=== PATIENT | female | born 1960 | race Caucasian/White ===

== ENCOUNTER → 2020-04-23 07:43 | Outpatient (CLI) | payer OTHER, SELFPAY ==
--- NOTE | ~2020-04-23 | US_ITS ---
EXAMINATION: US right upper quadrant EXAM DATE: 04/23/2020 08:12 INDICATION: Postprandial right upper quadrant pain. TECHNIQUE: Multiple grayscale and Doppler images of the abdomen right upper quadrant were obtained (b y a technologist who performed the scan) and subsequently reviewed. There is no prior study for cat hay. FINDINGS: The pancreatic head and body are normal in appearance. The pancreatic tail is not visualized. There is echogenic liver parenchyma with poor penetration, hepatic steatosis. There are no focal liver le sions identified. There is no evidence of intrahepatic biliary duct dilation. Portal venous flow w as seen in the hepatopedal, normal direction and has normal Doppler waveform. No right-sided hydrone phrosis. Common bile duct measures 4 mm, which is normal. The gallbladder wall is normal in thickness, with ex pected amount of distention. No sonographic evidence of pericholecystic fluid. At least 4 regions i dentified that are nonmobile, nonechogenic along the gallbladder wall, probably polyps. Largest is 1. 1 cm. Technologist performing exam reports patient did not demonstrate sonographic Newberry's sign. P lease note that this sign is less reliable in patients who have received pain medication. IMPRESSION: 1. Gallbladder polyps up to 1.1 cm; consider cholecystectomy or six-month follow-up ultrasound. 2. Hepatic steatosis. Reviewed, dictated and finalized at location B. IMPRESSION: 1. Gallbladder polyps up to 1.1 cm; consider cholecystectomy or six-month foll ow-up ultrasound. 2. Hepatic steatosis.
== END ==
PROVIDERS: PCP Family Medicine; Visit Provider Family Medicine
DX: K82.4 Cholesterolosis of gallbladder (principal); K76.0 Fatty (change of) liver, not elsewhere classified
CPT/HCPCS: 76705

== ENCOUNTER 2020-05-23 10:15 | Outpatient (CLI) | payer OTHER, SELFPAY ==
--- NOTE | ~2020-05-23 | MM_ITS ---
EXAMINATION: MM screening [facility] BI w tamiko HISTORY: Screening mammogram TECHNIQUE: Craniocaudal and mediolateral oblique 3-D tomosynthesis images were obtained and synthetic 2-D images were generated. CAD analysis was submitted and interpreted. COMPARISON: No prior mammogram is available for comparison at this institution. BREAST PARENCHYMAL COMPOSITION: 02/10/2019, 07/02/2017, 07/23/2015 bilateral digital screening mammogra m examinations FINDINGS: Stable mild fibroglandular asymmetry. There is no evidence of suspicious mass, calcificatio n, or architectural distortion to suggest malignancy in either breast. There has been no suspicious i nterval change. IMPRESSION: 1. No mammographic evidence of malignancy. 2. Recommend routine screening mammography in one year. BI-RADS Category 2: Benign finding(s). Reviewed, dictated and finalized at location A.
== END 2020-05-23 10:16 | disposition home or self-care (01) ==
PROVIDERS: PCP Family Medicine; Visit Provider Family Medicine
DX: Z12.31 Encounter for screening mammogram for malignant neoplasm of breast (principal)
CPT/HCPCS: 77063; 77067

== ENCOUNTER 2020-09-30 14:09 | Emergency (ER) | payer OTHER, SELFPAY ==
[2020-09-30 14:12] VITALS: BP 149/106; PULSE 108; RESP 18; TEMP 36.3; O2SAT 100
--- NOTE | 2020-09-30 14:30 | ECG_ITS ---
Measurements Intervals [place] Rate: 98 P: 38 AR: 137 QRS: 5 QRSD: 93 T: 30 QT: 345 QTc: 442 Interpretive Statements SINUS RHYTHM MINIMAL Q WAVES- INFERIOR LEADS BORDERLINE ECG Electronically Signed On 09-30-2020 14:41:04 MARINE SERVICE STATION ATTENDANT by Kennedy Price D.O.
--- NOTE | 2020-09-30 14:54 | ED.ARRPALP ---
HPI - Arrhythmia/Palpitations General Chief Complaint: Arrhythmia/Palpitations Stated Complaint: heart racing Time Seen by Provider: 09/30/20 14:27 Source: patient Mode of arrival: ambulatory Limitations: no limitations History of Present Illness HPI narrative: A 60-year-old female presents to the emergency department with complaints of palpitations and her heart racing. Patient notes an example of last night while sleeping patient states she woke right up had to urinate and at this time noted that her heart was racing. She denies any chest pain or tightness at this time. She denies any shortness of breath. Patient does note that she has had a few of her blood pressure medications changed around. She was started on lisinopril but noted that she was starting to have a swelling feeling in the back of her throat and tongue. Because of this her primary care doctor stopped the lisinopril and switch her to hydrochlorothiazide. Related Data Home Medications Medication Instructions Recorded Confirmed omeprazole magnesium 20 mg 20 mg PO DAILY 05/24/20 09/26/20 tablet,delayed release Allergies Allergy/AdvReac Type Severity Reaction Status Date / Time fluticasone [From Flonase] Allergy Hyperactive Verified 09/30/20 14:16 Review of Systems Review of Systems: Narrative: CONSTITUTIONAL: Denies fever, chills, or sweats. EYES: Denies visual changes, redness, or discharge. ENT: Denies rhinorrhea, congestion, sore throat, or otalgia. CARDIOVASCULAR: Denies chest pain, palpitations, or edema. RESPIRATORY: Denies cough or dyspnea. GASTROINTESTINAL: Denies abdominal pain, nausea, vomiting, or diarrhea. GENITOURINARY: Denies dysuria or hematuria. SKIN: Denies rash or itching. MUSCULOSKELETAL: Denies back pain, joint pain, or myalgia. NEUROLOGIC: Denies headache, numbness, dizziness, or weakness. PSYCHIATRIC: Denies anxiety or depression. [facility] Past Medical History Medical History Aftercare following surgery (08/18/19) Tear of medial meniscus of right knee Surgical History Surgical History H/O partial thyroidectomy History of partial hysterectomy Status post arthroscopic knee surgery (12/13/19) Family History Family History Mother Family history of arthritis Diabetes mellitus Father Family history of malignant neoplasm Diabetes mellitus Family history of arthritis Sibling Family history of hypercholesterolemia Hypertension Social History Social History Smoking status: Never smoker Alcohol intake: never Gender identity (if verbalized by the patient): Female Exam Narrative: Exam Narrative: GENERAL: Well-appearing, well-nourished, and in no acute distress. HEAD: Normocephalic, atraumatic. EYES: PERRLA and EOMI. ENT: Nares clear, no rhinorrhea or epistaxis. Mucous membranes moist. Oropharynx without tonsillar hypertrophy exudate or other lesions. Bilateral TMs pearly reynoso nonbulging NECK: Supple. No adenopathy or masses. No carotid bruits or JVD CHEST: Clear to auscultation. No respiratory distress. No wheezes rales or rhonchi HEART: Regular rate and rhythm. No murmur heard. Normal peripheral pulses. ABDOMEN: Soft, nontender, nondistended, normal active bowel sounds. EXTREMITIES: Normal range of motion. No edema. SKIN: Warm, dry, no rash. NEURO: No focal deficits. Alert and oriented x3. PSYCH: Normal mood and affect. Course Reevaluation(s) Reevaluation #1: Patient is resting comfortably. She has no complaints. The patient notes that she has had no further of the palpitations while here in the emergency department. She was asking questions regarding her lisinopril. Patient states that the tingling and slight swelling feeling that she was feeling in the back of her throat has been improving. She
[2020-09-30] MEDS: LACTATED RINGERS 1,000 ML 999 ML IV CONT (15:12)
[2020-09-30 15:56] LABS: Basophils Percent Auto 0.2 % (0.2-1.2); Eosinophils Absolute Auto 0.1 K/mm3 (0-0.3); Eosinophils Percent Auto 1.2 % (0-4.4); Hematocrit 42.1 % (37.0-47.0); Hemoglobin 13.7 g/dL (12.0-15.0); Immature Granulocyte Absolute 0.04 K/mm3 (0.00-0.031); Immature Granulocyte Percent A 0.4 % (0-0.5); Lymphocytes Absolute Auto 2.53 K/mm3 (0.9-3.2); Lymphocytes Percent Auto 24.7 % (18.3-44.2); Mean Corpuscular HGB Conc 32.5 g/dl (32-36); Mean Corpuscular Hemoglobin 27.3 pg (26-34); Mean Platelet Volume 9.5 fl (7.4-10.4); Monocytes Absolute Auto 0.9 K/mm3 (0.1-0.6); Monocytes Percent Auto 9.1 % (2.6-8.5); Neutrophils Absolute Auto 6.6 K/mm3 (1.3-6.7); Neutrophils Percent Auto 64.4 % (45.5-73.1); Platelet Count Result 343 k/mm3 (150-375); Red Blood Count 5.01 M/mm3 (4.2-5.4); Red Cell Distribution Width 13.2 % (11.5-14.5); White Blood Count 10.3 K/mm3 (4.5-10.0)
[2020-09-30 15:58] LABS: Add Urine Microscopic? NO; Appearance Urine Clear (Clear); Bilirubin Urine Negative (Negative); Blood Urine Negative (Negative); Color Urine Straw (Yellow); Glucose Urine UA Negative (Negative); Ketones Urine Negative (Negative); Leukocyte Esterase Ur Negative LEU/UL (Negative); Nitrate Urine Negative (Negative); Protein Urine Negative (Negative); Urobilinogen Urine Negative mg/dL (<2.0)
[2020-09-30 16:12] LABS: Alanine Aminotransferase 46 U/L (4-35); Albumin Level 4.6 g/dL (3.5-5.1); Alkaline Phosphatase 87 U/L (38-126); Anion Gap 8 mmol/L (8-16); Aspartate Amino Transferase 37 U/L (14-36); Bilirubin,Total 0.5 mg/dL (0.2-1.3); Blood Urea Nitrogen 18 mg/dL (7-17); Calcium 9.7 mg/dL (8.4-10.2); Carbon Dioxide 28 mmol/L (22-30); Chloride 103 mmol/L (98-107); Creatine Kinase 28 U/L (30-135); Estimated CRCL calculation 61 ml/min; Estimated Glomerular Filt Rate > 60; Glucose 105 mg/dL (65-105); Potassium 4.1 mmol/L (3.4-5.0); Sodium 139 mmol/L (137-145)
[2020-09-30 16:13] LABS: Amphetamine Screen Urine Negative (Negative); Barbiturate Screen Urine Negative (Negative); Benzodiazepines Screen Urine Negative (Negative); Cannabinoid Screen Urine Negative (Negative); Cocaine Screen Urine Negative (Negative); Methadone Screen Urine Negative (Negative); Opiate Screen Urine Negative (Negative); Phencyclidine Screen Urine Negative (Negative)
[2020-09-30 16:23] LABS: Troponin I < 0.012 ng/mL (0.000-0.034)
[2020-09-30 17:04] VITALS: BP 139/75; PULSE 97; RESP 17; O2SAT 100
[2020-09-30 17:23] LABS: Thyroid Stimulating Hormone Reflex 0.222 uIU/mL (0.465-4.68)
[2020-09-30 18:07] LABS: Free T4 Free Thyroxine Reflex 0.97 ng/dL (0.78-2.19)
[2020-09-30 19:02] LABS: Total Triiodothyronine (T3) 1.37 NG/ML (0.97-1.69)
== END 2020-09-30 17:35 | disposition home or self-care (01) ==
PROVIDERS: Emergency Provider Emergency Medicine; PCP Family Medicine
DX: R00.2 Palpitations (principal); F41.9 Anxiety disorder, unspecified; E89.0 Postprocedural hypothyroidism
CPT/HCPCS: 36415; 80053; 80307; 81003; 82550; 83735; 84439; 84443; 84480; 84484; 85025; 93005; 96360; 99284; J7120

== ENCOUNTER → 2020-10-21 07:46 | Outpatient (CLI) | payer OTHER, SELFPAY ==
--- NOTE | ~2020-10-21 | US_ITS ---
EXAMINATION: US thyroid DATE: 10/21/2020 08:22 INDICATION: Left thyroidectomy. TECHNIQUE: Multiple ultrasound images of the thyroid were obtained. COMPARISON: None. FINDINGS: The right thyroid lobe measures 6.9 x 2.2 x 2.5 cm. The left thyroid lobe is not visualized consiste nt with given history of prior partial thyroidectomy. No abnormal soft tissue at the left thyroid fos sa. 2.7 cm wider than tall solid heterogeneous iso to hypoechoic nodule with smooth margins and witho ut echogenic foci. (TI-RADS 4, moderately suspicious , FNA if >=1.5 cm, annual followup is >1 cm) in the superior right thyroid lobe. There is a second similar-appearing 2.0 cm TI RADS 4 nodule in the i nferior left thyroid lobe. 1 cm wider than tall hypoechoic solid nodule at the inferior most left thy roid with smooth margin with shadowing partial rim calcification also TI RADS 4. Finally there is a 2 .0 cm spongiform nodule. (TI-RADS 1, benign, no FNA recommended) In the mid right thyroid. IMPRESSION: 1. Multiple nodules in the remaining right thyroid lobe including a pair of TI RADS 4 nodules measuri ng 2.7 and 2.0 cm, both meeting criteria for ultrasound-guided biopsy which would be recommended. 2. Status post left thyroidectomy. Reviewed, dictated and finalized at location A. RNAL MEDICINE HOSPITALIST IMPRESSION: 1. Multiple nodules in the remaining right thyroid lobe including a pair of TI RADS 4 nodules measuring 2.7 and 2.0 cm, both meeting criteria for ultrasound-g uided biopsy which would be recommended. 2. Status post left thyroidectomy.
--- NOTE | ~2020-10-21 | US_ITS ---
EXAMINATION: US right upper quadrant DATE: 10/21/2020 08:22 INDICATION: Right upper quadrant pain TECHNIQUE: Multiple grayscale and Doppler ultrasound images of the abdomen were obtained. COMPARISON: 04/23/2020 FINDINGS: The head, body, and tail of the pancreas are normal. The liver demonstrates increased echog enicity, heterogenous echotexture, and decreased through transmission. No surface nodularity. Normal hepatopetal flow in the main portal vein. Again seen are multiple gallbladder polyps which measure up to 10 mm. No stones are identified in the gallbladder. There is no gallbladder wall thickening. The normal common bile duct measures 3 mm. There was no sonographic Newberry sign. IMPRESSION: 1. Multiple gallbladder polyps measuring up to 10 mm. Follow-up ultrasound in six months is recommend ed. 2. Diffuse hepatic steatosis. Reviewed, dictated and finalized at location A. DRIER IMPRESSION: 1. Multiple gallbladder polyps measuring up to 10 mm. Follow-up ultrasound in s ix months is recommended. 2. Diffuse hepatic steatosis.
== END ==
PROVIDERS: PCP Internal Medicine; Visit Provider Internal Medicine
DX: K82.4 Cholesterolosis of gallbladder (principal); Z90.09 Acquired absence of other part of head and neck; R91.8 Other nonspecific abnormal finding of lung field; K76.0 Fatty (change of) liver, not elsewhere classified
CPT/HCPCS: 76536; 76705

== ENCOUNTER 2021-06-02 07:48 | Outpatient (CLI) | payer BC, SELFPAY ==
--- NOTE | ~2021-06-02 | MM_ITS ---
EXAMINATION: MM screening [facility] BI w tamiko HISTORY: Screening TECHNIQUE: Craniocaudal and mediolateral oblique 3-D tomosynthesis images were obtained and synthetic 2-D images were generated. CAD analysis was submitted and interpreted. COMPARISON: Comparison to multiple prior studies sequentially, with oldest reviewed study dated 01/2012. BREAST PARENCHYMAL COMPOSITION: There are scattered areas of fibroglandular density. FINDINGS: There is no evidence of suspicious mass, calcification, or architectural distortion to sugg est malignancy in either breast. There has been no suspicious interval change. IMPRESSION: 1. No mammographic evidence of malignancy. 2. Recommend routine screening mammography in one year. BI-RADS Category 1: Negative Reviewed, dictated and finalized at location A.
== END 2021-06-02 07:49 | disposition home or self-care (01) ==
LOC: ANHIMG 07:50
PROVIDERS: PCP Internal Medicine; Visit Provider Internal Medicine
DX: Z12.31 Encounter for screening mammogram for malignant neoplasm of breast (principal)
CPT/HCPCS: 77063; 77067

== ENCOUNTER → 2021-12-12 10:42 | Outpatient (CLI) | payer BC, SELFPAY ==
--- NOTE | ~2021-12-12 | MR_ITS ---
EXAMINATION: MR foot LT wo/w con DATE: 12/12/2021 11:52 INDICATION: Soft tissue mass at the left foot. Possible plantar plate tear with pain near the ball of the foot. TECHNIQUE: Magnetic resonance imaging (MRI) of the left fore/mid foot was performed without and with 14 mL Multihance intravenous contrast. Sequences included sagittal T1-weighted FSE, sagittal fluid se nsitive FSE STIR, coronal PD-weighted FS FSE, coronal T1-weighted FSE, axial T2-weighted FS FSE, axia l T1-weighted FS FSE, axial T1-weighted FSE and postcontrast axial, sagittal and coronal T1-weighted FS FSE . COMPARISON: Left foot radiographs dated 10/06/2017 FINDINGS: Bone alignment is normal. There is normal marrow signal throughout with no fracture, reactive edema o r pathologic marrow replacing process. Joint spaces are relatively preserved. No joint effusions. The re is a longitudinal split tear along the lateral sesamoid phalangeal ligament. The remainder of the plantar plate complex at the first metatarsophalangeal joint is normal. Remaining plantar plate compl exes at the second-fifth toes are normal. The Lisfranc ligament complex as well as the collateral lig ament complex at the metatarsophalangeal and interphalangeal joints are normal. The flexor and extens or tendons are normal. Intrinsic musculature of the foot is unremarkable. No intermetatarsal bursitis , Gustafson's neuroma or other abnormal masses or fluid collections. No abnormally enhancing lesions kylee ntified. IMPRESSION: 1. Small longitudinal split tear extending along the axis of the lateral sesamoid phalangeal ligament of the first metatarsal. Otherwise unremarkable left foot MRI. Reviewed, dictated and finalized at location B. IMPRESSION: 1. Small longitudinal split tear extending along the axis of the lateral sesamo id phalangeal ligament of the first metatarsal. Otherwise unremarkable left marian t MRI.
[2021-12-12 11:08] LABS: Estimated Glomerular Filt Rate 56
== END ==
PROVIDERS: PCP Internal Medicine
DX: S93.692A Other sprain of left foot, initial encounter (principal)
CPT/HCPCS: 73720; A9577

== ENCOUNTER 2022-08-06 08:40 | Outpatient (CLI) | payer BC, SELFPAY ==
--- NOTE | ~2022-08-06 | MM_ITS ---
EXAMINATION: MM screening [facility] BI w tamiko HISTORY: Screening mammogram TECHNIQUE: Craniocaudal and mediolateral oblique 3-D tomosynthesis images were obtained and synthetic 2-D images were generated. CAD analysis was submitted and interpreted. COMPARISON: 06/02/2021, 05/23/2020, 02/10/2019 BREAST PARENCHYMAL COMPOSITION: There are scattered areas of fibroglandular density. FINDINGS: No suspicious mass, calcification, or architectural distortion are identified in either chaz ast to suggest malignancy. There has been no suspicious interval change. IMPRESSION: 1. No mammographic evidence of malignancy. 2. Recommend routine screening mammography in one year. BI-RADS Category 1: Negative Reviewed, dictated and finalized at location A. OSAL OPERATOR
== END 2022-08-06 08:41 | disposition home or self-care (01) ==
LOC: ANHIMG 08:43
PROVIDERS: PCP Internal Medicine; Visit Provider Internal Medicine
DX: Z12.31 Encounter for screening mammogram for malignant neoplasm of breast (principal)
CPT/HCPCS: 77063; 77067

== ENCOUNTER → 2022-09-17 08:48 | Outpatient (CLI) | payer BC, SELFPAY ==
--- NOTE | ~2022-09-17 | XR_ITS ---
EXAMINATION: XR lumbar spine min 4V DATE: 09/17/2022 09:05 INDICATION: Lumbar radiculopathy TECHNIQUE: Anteroposterior, lateral, and bilateral oblique views of the lumbar spine, and cone-down l ateral view of the lumbosacral junction were obtained. COMPARISON: 05/05/2016 FINDINGS: There are 2 mm of stable anterolisthesis of L4 on L5. Vertebral body alignment is otherwise normal. The vertebral body heights are maintained. There is mild loss of intervertebral disc space h eight at L4-5. Small degenerative osteophytes project from the anterior endplates of multiple vertebr al bodies. There is mild facet joint osteoarthritis of the lower lumbar spine without significant monica nge. Surgical clips in the right upper quadrant are likely from prior cholecystectomy. A moderate vol ume of colonic stool is present. The bowel gas pattern is normal. IMPRESSION: 1. Mild lumbar lumbar spondylosis without acute findings or significant interval change. Reviewed, dictated and finalized at location L. ER OPERATOR IMPRESSION: 1. Mild lumbar lumbar spondylosis without acute findings or significant interva l change.
== END ==
PROVIDERS: PCP Internal Medicine; Visit Provider Internal Medicine
DX: M47.816 Spondylosis without myelopathy or radiculopathy, lumbar region (principal); Z13.820 Encounter for screening for osteoporosis
CPT/HCPCS: 72110

== ENCOUNTER 2022-10-19 13:42 | Outpatient (CLI) | payer BC, SELFPAY ==
--- NOTE | ~2022-10-19 | DEXA_ITS ---
Bone Density Report Name: BIANCA BROWN Age: 62 Sex: Female Ethnicity: White Date of : 1960 Indication: postmenopausal; screening for osteoporosis; parental hip fracture; height loss; hysterectomy; Referring Provider: DEBBIE, PREET [facility] Study: Bone densitometry was performed. Exam Date: October 19, 2022 Accession number: [id number] Bone Density: Region BMD T-score Z-score Classification AP Spine(L1-L4) 0.895 -1.4 0.3 Osteopenia Femoral Neck (Left) 0.646 -1.8 -0.4 Osteopenia Total Hip (Left) 0.817 -1.0 0.1 Normal Femoral Neck (Right) 0.687 -1.5 0.0 Osteopenia Total Hip (Right) 0.880 -0.5 0.6 Normal Total Hip Mean 0.848 -0.8 0.4 Normal World Health Organization criteria for BMD impression classify patients as: Normal (T-score at or above -1.0), Osteopenia (T-score between -1.0 and -2.5), or Osteoporosis (T-score at or below -2.5). 10-year Fracture Risk(1): Major Osteoporotic Fracture 18% Hip Fracture 1.2% Reported Risk Factors: [place] (), Neck BMD=0.646, BMI=30.6, parental fracture (1) FRAX(R) Version 3.08. Fracture probability calculated for an untreated patient. Fracture probability may be lower if the patient has received treatment. Previous Exams: Region Exam Age BMD T-score BMD Change BMD Change Date g/cm2 vs Baseline vs Previous Total Hip(Left) 10/19/2022 62 0.817 -1.0 -0.017 (-2.0%) -0.017 (-2.0%) 07/23/2015 55 0.834 -0.9 Total Hip(Right) 10/19/2022 62 0.880 -0.5 -0.006 (-0.7%) -0.006 (-0.7%) 07/23/2015 55 0.886 -0.5 *Denotes significance at 95% confidence level, LSC for Total Hip = 0.027 g/cm2 Clinical Information Provided by Patient: Parent has had a hip fracture Has used the following medications: Vitamin D, Calcium Has the following medical conditions: Hysterectomy Patient maximum height was 60.5 Onset of menses at age 11 Number of children 2 Impression: The patient has low bone mass, based on the Left Femoral Neck T-score. The patient has an estimated ten-year risk of hip fracture of 1.2% and an estimated ten-year risk of major fracture of 18%, based on the WHO FRAX algorithm. The patient has risk factors, including: parental hip fracture. No significant bone loss was observed. Discussion: BONE DENSITY IS LOW AT ONE OR MORE SKELETAL SITES. This patient's lowest T-score is low at one or more skeletal sites. It meets the World Health Organization's (WHO) criteria for ?low bone mass? (T-score between -1.0
== END 2022-10-19 13:43 | disposition home or self-care (01) ==
LOC: ANHIMG 13:45
PROVIDERS: PCP Internal Medicine; Visit Provider Internal Medicine
DX: M54.16 Radiculopathy, lumbar region (principal); Z13.820 Encounter for screening for osteoporosis; M85.89 Other specified disorders of bone density and structure, multiple sites
CPT/HCPCS: 77080

== ENCOUNTER → 2023-05-28 07:52 | Outpatient (CLI) | payer BC, SELFPAY ==
--- NOTE | ~2023-05-28 | XR_ITS ---
AP view of the pelvis and AP and lateral views of the bilateral hips Clinical history: Pain Findings: No acute fracture or dislocation is seen. Osseous alignment is anatomic. Bilateral hip and SI joint spaces are preserved. Soft tissues are unremarkable. Impression: No significant abnormality is seen. Reviewed, dictated and finalized at location . Impression: No significant abnormality is seen.
== END ==
PROVIDERS: PCP Internal Medicine; Visit Provider Chiropractor
DX: M25.551 Pain in right hip (principal); M25.552 Pain in left hip
CPT/HCPCS: 73521

== ENCOUNTER 2024-08-29 17:50 | Emergency (ER) | payer MEDICARE, SELFPAY ==
--- NOTE | ~2024-08-29 | XR_ITS ---
CHEST RADIOGRAPH, PA AND LATERAL CLINICAL HISTORY: syncope, WEAKNESS WITH HEAD COLD . COMPARISON: None available TECHNIQUE: PA and lateral views of the chest. FINDINGS The cardiomediastinal silhouette is unremarkable. The lungs are clear. Visualized osseous structures and soft tissues are unremarkable. IMPRESSION: No focal infiltrate or effusion. Reviewed, dictated and finalized at location A. ET RESEARCH CONSULTANT
--- NOTE | 2024-08-29 17:57 | ECG_ITS ---
Test Date: 2024-08-29 18:13:28 Measurements Intervals [place] Rate: 93 P: 34 VA: 151 QRS: 8 QRSD: 81 T: 33 QT: 350 QTc: 435 Interpretive Statements SINUS RHYTHM No previous ECG available for comparison Electronically Signed On 08-30-2024 13:48:51 [id number] DEVELOPER by Justin Herrera M.D.
[2024-08-29 21:10] VITALS: PULSE 96; RESP 18; TEMP 37.1; O2SAT 96
[2024-08-29 21:10] LABS: Basophils Percent Auto 0.2 % (0.2-1.2); Eosinophils Percent Auto 0.1 % (0-4.4); Hematocrit 37.3 % (37.0-47.0); Hemoglobin 12.2 g/dL (12.0-15.0); Immature Granulocyte Absolute 0.09 K/mm3 (0.00-0.031); Immature Granulocyte Percent A 0.6 % (0-0.5); Lymphocytes Absolute Auto 1.29 K/mm3 (0.9-3.2); Lymphocytes Percent Auto 8.6 % (18.3-44.2); Mean Corpuscular HGB Conc 32.7 g/dl (32-36); Mean Corpuscular Hemoglobin 27.2 pg (26-34); Mean Corpuscular Volume 83.3 fl (80-100); Mean Platelet Volume 9.7 fl (7.4-10.4); Monocytes Absolute Auto 1.5 K/mm3 (0.1-0.6); Monocytes Percent Auto 9.6 % (2.6-8.5); Neutrophils Absolute Auto 12.2 K/mm3 (1.3-6.7); Neutrophils Percent Auto 80.9 % (45.5-73.1); Platelet Count Result 258 k/mm3 (150-375); Red Blood Count 4.48 M/mm3 (4.2-5.4); Red Cell Distribution Width 13.9 % (11.5-14.5)
[2024-08-29] MEDS: SODIUM CHLORIDE 0.9% IV 500 ML 999 ML IV CONT (21:15)
[2024-08-29 21:21] LABS: Alanine Aminotransferase 31 U/L (6-35); Albumin Level 4.4 g/dL (3.5-5.1); Alkaline Phosphatase 101 U/L (38-126); Anion Gap 6 mmol/L (4-12); Aspartate Amino Transferase 36 U/L (14-36); Bilirubin,Total 0.7 mg/dL (0.2-1.3); Blood Urea Nitrogen 16 mg/dL (7-17); Calcium 9.1 mg/dL (8.4-10.2); Carbon Dioxide 22 mmol/L (22-30); Chloride 105 mmol/L (98-107); Estimated CRCL calculation 53 ml/min; Estimated Glomerular Filt Rate > 60; Glucose 123 mg/dL (65-110); Sodium 133 mmol/L (137-145)
--- NOTE | 2024-08-29 22:10 | ED.SYNCOPE ---
HPI - Syncope General Chief Complaint: Syncope Stated Complaint: syncope Time Seen by Provider: 08/29/24 19:59 Source: patient and family Mode of arrival: ambulatory Limitations: no limitations History of Present Illness HPI narrative: 5 acquired old otherwise healthy here with complaints of having near syncopal episode this evening. Patient states that she was trying to use a restroom felt lightheaded and dizzy and almost passed out for 45 seconds. She denies any chest pain or shortness of breath. No history of nausea vomiting or abdominal pain. She states that she had a similar episode few months ago and was diagnosed as vasovagal syncope Related Data Home Medications ?Medication ?Instructions ?Recorded ?Confirmed ?Last Taken ?Type omeprazole magnesium 20 mg 20 mg PO DAILY 05/24/20 10/08/20 Unknown History tablet,delayed release (Prilosec OTC) Allergies Allergy/AdvReac Type Severity Reaction Status Date / Time fluticasone AdvReac jittery Verified 10/08/20 11:52 Review of Systems Review of Systems: All systems reviewed & are unremarkable except as noted in HPI and below Constitutional: Constitutional: Reports no additional constitutional complaints Eyes: Eyes: Reports no additional eye complaints ENT: Reports system reviewed and no additional complaints, except as documented Cardiovascular: Cardiovascular: Reports no additional cardiovascular complaints Respiratory: Respiratory: Reports no additional respiratory complaints Gastrointestinal: Gastrointestinal: Reports no additional gastrointestinal complaints Musculoskeletal: Musculoskeletal: Reports no additional musculoskeletal complaints Neurologic: Reports system reviewed and no additional complaints, except as documented [facility] Past Medical History Medical History Aftercare following surgery (08/18/19) Tear of medial meniscus of right knee Surgical History Surgical History Status post arthroscopic knee surgery (08/18/19) History of partial hysterectomy H/O partial thyroidectomy Family History Family History Mother Family history of arthritis Diabetes mellitus Father Family history of malignant neoplasm Diabetes mellitus Family history of arthritis Sibling Family history of hypercholesterolemia Hypertension Social History Social History Smoking status: Never smoker Alcohol intake: never Gender identity (if verbalized by the patient): Female Exam Narrative: GENERAL: Well-appearing, well-nourished, and in no acute distress. HEAD: Normocephalic, atraumatic. EYES: PERRLA and EOMI. ENT: Nares clear, . Mucous membranes moist. NECK: Supple. CHEST: Clear to auscultation. No respiratory distress. HEART: Regular rate and rhythm. No murmur heard. Normal peripheral pulses. ABDOMEN: Soft, nontender, nondistended, normal active bowel sounds. EXTREMITIES: Normal range of motion. No edema. SKIN: Warm, dry, no rash. NEURO: No focal deficits. Alert and oriented x3. PSYCH: Normal mood and affect. Course Course Emergency Course: Patient comfortably resting she remained in normal sinus rhythm on the monitor for past several hours needed I did inform her and about her lab work, EKG chest x-ray findings. Appears to be a vasovagal syncope. Recommended her to follow up with the primary doctor . Vital Signs Vital signs: Vital Signs Temperature 37.1 C 08/29/24 21:10 Pulse Rate 96 08/29/24 21:10 Respiratory Rate 18 08/29/24 21:10 Pulse Oximetry 96 08/29/24 21:10 Temperature 37.1 C 08/29/24 21:10 Pulse Rate 96 08/29/24 21:10 Respiratory Rate 18 08/29/24 21:10 Pulse Oximetry 96 08/29/24 21:10 MDM - Syncope Differential Diagnosis Differential diagnosis: Likely syncope due to orthostatic hypotension, vasovagal syncope, complete atrioventricular block and dehydration Medical Records Attestation: I reviewed the patient's medical records. Lab Data Attestation: I reviewed the patient's lab results. 08/29/24 21:03 08/29/24 21:03 Labs: Lab Results 08/29/24 Range/Units 21:03 WBC 15.0 H (4.5-10.0) K/mm3 RBC 4.48 (4.2-5.4) M/mm3 Hgb 12.2 (12.0-15.0) g/dL Hct 37.3 (37.0-47.0) % MCV 83.3 (80-100) fl MCH 27.2 (26-34) pg MCHC 32.7 (32-36) g/dl RDW 13.9 (11.5-14.5) % Plt Count 258 (150-375) k/mm3 MPV 9.7 (7.4-10.4) fl Immature Gran % (Auto) 0.6 H (0-0.5) % Neut % (Auto) 80.9 H (45.5-73.1) % Lymph % (Auto) 8.6 L (18.3-44.2) % [place] % (Auto) 9.6 H (2.6-8.5) % Eos % (Auto) 0.1 (0-4.4) % Baso % (Auto) 0.2 (0.2-1.2) % Lymph # (Auto) 1.29 (0.9-3.2) K/mm3 [place] # (Auto) 1.5 H (0.1-0.6) K/mm3 Eos # (Auto) 0.0 (0-0.3) K/mm3 Baso # (Auto) 0.0 (0.0-0.1) K/mm3 Abs Immat Gran (auto) 0.09 H (0.00-0.031) K/mm3 Absolute Neuts (auto) 12.2 H (1.3-6.7) K/mm3 Absolute Nucleated RBC 0.000 (0.0-0.012) K/mm3 Nucleated RBC % 0.0 (0.0-0.2) % Sodium 133 L (137-145) mmol/L Potassium 4.0 (3.4-5.0) mmol/L Chloride 105 (98-107) mmol/L Carbon Dioxide 22 (22-30) mmol/L Anion Gap 6 (4-12) mmol/L BUN 16 (7-17) mg/dL Creatinine 0.80 (0.7-1.0) mg/dL Estim Creat Clear Calc 53 ml/min Estimated GFR > 60 (59 - ) Glucose 123 H (65-110) mg/dL Calcium 9.1 (8.4-10.2) mg/dL Total Bilirubin 0.7 (0.2-1.3) mg/dL AST 36 (14-36) U/L ALT 31 (6-35) U/L Alkaline Phosphatase 101 (38-126) U/L Total Protein 8.0 (6.3-8.2) g/dL Albumin 4.4 (3.5-5.1) g/dL Imaging Data Radiologist's impression: ITS Impressions Chest X-Ray 08/29/24 20:13 IMPRESSION: No focal infiltrate or effusion. ECG Data EKG #1: ECG completion date: 08/29/24 ECG completion time: 18:13 EKG Interpretation: normal rate (93), sinus rhythm, no ectopy, no ST changes, normal QT and NL axis Discharge Plan Discharge Clinical Impression: Vasovagal syncope Patient Disposition: Home, Self-Care Condition: Stable Instructions: Syncope (ED) Additional Instructions: Drink more fluids, follow-up with your primary doctor Patient Language: Greek Prescriptions: No Action omeprazole magnesium [Prilosec OTC] 20 mg tablet,delayed release (DR/EC) 20 mg PO DAILY estradiol [Estrace] 0.01 % (0.1 mg/gram) cream 1 gm VAGINAL 2XW Qty: 42.5 5RF hydrochlorothiazide 25 mg tablet See Rx Instructions .ROUTE .COMPLEX Qty: 30 0RF Dose Instruction: TAKE 1 TABLET BY MOUTH DAILY Rx Instructions: TAKE 1 TABLET BY MOUTH DAILY Follow-up/Referrals: Thomas,MD Bentley ([place]) [Primary Care Provider] - Time of Disposition: 22:14
[2024-08-29 23:12] VITALS: BP 142/88; PULSE 89; RESP 16; O2SAT 100
== END 2024-08-29 23:13 | disposition home or self-care (01) ==
PROVIDERS: Student in an Organized Health Care Education/Training Program; Emergency Provider Family Medicine; PCP Internal Medicine
DX: R55 Syncope and collapse (principal)
CPT/HCPCS: 36415; 71046; 80053; 85025; 93005; 99284; J7040